=== PATIENT | male | born 1945 | race Caucasian/White ===

== ENCOUNTER → 2017-07-31 | Outpatient (CLI) | payer OTHER ==
[~2017-07-31] MED LIST: ADVAIR 250/501 DISK IH; ADVAIR 500/501 DISK IH; ASPIRIN EC325 M1 PO; ECOTRIN325 MG PO; LIPITOR20 MG PO; LOPRESSOR12.5 MG PO; OPANA ER20 MG PO; OPANA IR10 MG PO; ROXICODONE15 MG PO; SPIRIVA1 INHALATI IH; TOPROL XL25 MG PO; WELLBUTRIN SR150 MG PO; ZANTAC150 MG PO
== END | disposition home or self-care (01) ==
LOC: OPR 07:51 → EDSTATUS 08:00
PROC: 0BB43ZX Excision of Right Upper Lobe Bronchus, Percutaneous Approach, Diagnostic (ICD-10-PCS; principal; 2017-07-31)
DX: C34.11 Malignant neoplasm of upper lobe, right bronchus or lung (principal); J44.9 Chronic obstructive pulmonary disease, unspecified; F17.200 Nicotine dependence, unspecified, uncomplicated; I25.10 Atherosclerotic heart disease of native coronary artery without angina pectoris; Z77.090 Contact with and (suspected) exposure to asbestos
CPT/HCPCS: 71045; 77012; 88305; 88341 TC; 88342 TC; J3010

== ENCOUNTER 2017-08-01 18:22 | Emergency (ER) | payer OTHER, BC ==
[~2017-08-01] VITALS: Ht 175.3 cm; Wt 93.3 kg
[2017-08-01 19:15] LABS: HEMATOCRIT 33.3 % (38.0-50.0); HEMOGLOBIN 11.4 G/DL (12.5-16.6); MCH 31.8 PG (29.0-34.0); MCHC 34.2 G/DL (30.0-36.0); PLATELET COUNT 280 K/uL (156-360); RBC DIS.WIDTH-CV 11.3 % (11.8-14.6); RBC DIS.WIDTH-SD 38.3 % (39-53); RED BLOOD COUNT 3.58 M/uL (4.00-5.50); WHITE BLOOD COUNT 12.3 K/uL (4.1-10.2)
[2017-08-01 19:35] LABS: CHLORIDE 99 mEq/L (99-109); POTASSIUM 4.6 mEq/L (3.7-5.4); SODIUM 135 mEq/L (136-147)
[2017-08-01 19:37] LABS: GLUCOSE 110 mg/dL (70-99); TROP-I INTERPRETATION NEGATIVE; TROPONIN-I < 0.01 ng/mL (0.0-0.30)
[2017-08-01 19:41] LABS: CREATININE 1.3 mg/dL (0.6-1.3); GFR ESTIMATE (CALCULATED) 58 mL/min/ (58.99-99999)
[2017-08-01 19:42] LABS: UREA NITROGEN (BUN) 25 mg/dL (9-23)
[2017-08-02 02:00] VITALS: BP 109/66
== END 2017-08-02 02:00 | disposition home or self-care (01) ==
LOC: EME 18:22
PROVIDERS: Physician Assistant
DX: R55 Syncope and collapse (principal); M48.54XA Collapsed vertebra, not elsewhere classified, thoracic region, initial encounter for fracture; R91.8 Other nonspecific abnormal finding of lung field; J44.9 Chronic obstructive pulmonary disease, unspecified; E78.5 Hyperlipidemia, unspecified; I10 Essential (primary) hypertension; Z95.1 Presence of aortocoronary bypass graft; Z72.0 Tobacco use
CPT/HCPCS: 71046; 71275; 80048; 84484; 85027; 85379; 93005; 99281; 99285

== ENCOUNTER 2017-08-26 11:13 | Inpatient (IN) | payer OTHER, BC ==
[~2017-08-26] VITALS: Ht 172.7 cm; Wt 81.9 kg
[2017-08-26 12:23] LABS: MCH 30.3 PG (29.0-34.0); MCHC 33.2 G/DL (30.0-36.0); MCV 91.2 FL (86-99); RBC DIS.WIDTH-CV 12.2 % (11.8-14.6); RBC DIS.WIDTH-SD 40.7 % (39-53); WHITE BLOOD COUNT 4.6 K/uL (4.1-10.2)
[2017-08-26 12:28] LABS: INTER. NORMALIZED RATIO 1.3
[2017-08-26 12:31] LABS: PTT 26.4 SEC (25-37)
[2017-08-26 12:32] LABS: CHLORIDE 100 mEq/L (99-109); POTASSIUM 4.6 mEq/L (3.7-5.4); SODIUM 133 mEq/L (136-147)
[2017-08-26 12:34] LABS: GLUCOSE 106 mg/dL (70-99)
[2017-08-26 12:38] LABS: CREATININE 0.8 mg/dL (0.6-1.3); GFR ESTIMATE (CALCULATED) > 59 mL/min/ (58.99-99999); UREA NITROGEN (BUN) 32 mg/dL (9-23)
[2017-08-26 12:44] LABS: HEMOGLOBIN 8.3 G/DL (12.5-16.6); RED BLOOD COUNT 2.74 M/uL (4.00-5.50)
[2017-08-26 12:45] LABS: TROP-I INTERPRETATION NEGATIVE; TROPONIN-I < 0.01 ng/mL (0.0-0.30)
[2017-08-26 13:35] LABS: BASOPHIL (%) 0.4 % (0-1); EOSINOPHIL (%) 0.2 % (0-5); IMMATURE GRANULOCYTE (%) 1.9 % (0.0-0.7); LYMPHOCYTE (%) 18.5 % (15-42); LYMPHOCYTE COUNT 0.9 K/uL (1.0-2.8); MONOCYTE (%) 4.5 % (3-12); MONOCYTE COUNT 0.2 K/uL (0-0.8); NEUTROPHIL (%) 74.5 % (45-76); NEUTROPHIL COUNT 3.5 K/uL (1.8-6.4); PLAT.SUFFICIENCY ADEQUATE; PLATELET CLUMPS PRESENT - PLATELET COUNT APPEARS ADQ.; PLATELET COUNT UNABLE TO REPORT K/uL (156-360)
[2017-08-26] MEDS ORDERED: SPIRIVA RESPIMAT4 GM IH (15:14)
[2017-08-26] MEDS ORDERED: DILAUDID2 MG PO (15:15)
[2017-08-26] MEDS ORDERED: ZOFRAN ODT4 MG PO (15:17)
[2017-08-26] MEDS ORDERED: COMPAZINE10 MG PO (15:17)
[2017-08-26] MEDS ORDERED: ACID CONTROL150 MG PO (15:18)
[2017-08-26] MEDS ORDERED: FOLIC ACID0.8 MG PO (15:19)
[2017-08-26 22:00] VITALS: BP 159/76
[2017-08-27] VITALS (11 sets, daily range): BP systolic 129–152; BP diastolic 60–75
[2017-08-27 06:38] LABS: HEMATOCRIT 22.1 % (38.0-50.0); HEMOGLOBIN 7.2 G/DL (12.5-16.6); MCH 29.9 PG (29.0-34.0); MCHC 32.6 G/DL (30.0-36.0); MCV 91.7 FL (86-99); RBC DIS.WIDTH-CV 11.8 % (11.8-14.6); RBC DIS.WIDTH-SD 39.7 % (39-53); RED BLOOD COUNT 2.41 M/uL (4.00-5.50)
[2017-08-27 07:02] LABS: CHLORIDE 100 MEQ/L (99-109); CREATININE 0.7 MG/DL (0.6-1.3); GFR ESTIMATE (CALCULATED) > 59 mL/min/ (58.99-99999); GLUCOSE 150 mg/dL (70-99); POTASSIUM 4.8 MEQ/L (3.7-5.4); SODIUM 135 MEQ/L (136-147); UREA NITROGEN (BUN) 22 mg/dL (9-23)
[2017-08-27 07:06] LABS: BASOPHIL (%) 0.3 % (0-1); EOSINOPHIL (%) 0 % (0-5); IMMATURE GRANULOCYTE (%) 1.7 % (0.0-0.7); LYMPHOCYTE (%) 11.6 % (15-42); LYMPHOCYTE COUNT 0.4 K/uL (1.0-2.8); MONOCYTE (%) 3.7 % (3-12); MONOCYTE COUNT 0.1 K/uL (0-0.8); NEUTROPHIL (%) 82.7 % (45-76); NEUTROPHIL COUNT 2.5 K/uL (1.8-6.4)
[2017-08-27 07:33] LABS: PLATELET COUNT 93 K/uL (156-360)
[2017-08-28 04:12] VITALS: BP 144/70
[2017-08-28 06:05] LABS: CHLORIDE 102 MEQ/L (99-109); CREATININE 0.7 MG/DL (0.6-1.3); GFR ESTIMATE (CALCULATED) > 59 mL/min/ (58.99-99999); GLUCOSE 132 mg/dL (70-99); POTASSIUM 4.9 MEQ/L (3.7-5.4); SODIUM 135 MEQ/L (136-147); UREA NITROGEN (BUN) 20 mg/dL (9-23)
[2017-08-28 06:07] LABS: BASOPHIL (%) 0.2 % (0-1); EOSINOPHIL (%) 0 % (0-5); HEMATOCRIT 27.5 % (38.0-50.0); HEMOGLOBIN 9.2 G/DL (12.5-16.6); IMMATURE GRANULOCYTE (%) 1.2 % (0.0-0.7); LYMPHOCYTE (%) 14.1 % (15-42); LYMPHOCYTE COUNT 0.9 K/uL (1.0-2.8); MCH 29.9 PG (29.0-34.0); MCHC 33.5 G/DL (30.0-36.0); MCV 89.3 FL (86-99); MONOCYTE (%) 3.6 % (3-12); MONOCYTE COUNT 0.2 K/uL (0-0.8); NEUTROPHIL (%) 80.9 % (45-76); NEUTROPHIL COUNT 5.3 K/uL (1.8-6.4); PLATELET COUNT 78 K/uL (156-360); RBC DIS.WIDTH-CV 13.3 % (11.8-14.6); RBC DIS.WIDTH-SD 43.5 % (39-53); RED BLOOD COUNT 3.08 M/uL (4.00-5.50); WHITE BLOOD COUNT 6.6 K/uL (4.1-10.2)
[2017-08-28 07:25] VITALS: BP 144/75
[2017-08-28 17:25] LABS: STOOL OCCULT BLD 1ST SPECIMEN NEGATIVE
[2017-08-28 19:32] VITALS: BP 158/88
[2017-08-28 23:10] VITALS: BP 138/66
[2017-08-29 06:35] LABS: HEMOGLOBIN 9.7 G/DL (12.5-16.6); MCH 30.2 PG (29.0-34.0); MCHC 33.4 G/DL (30.0-36.0); MCV 90.3 FL (86-99); PLATELET COUNT 57 K/uL (156-360); RBC DIS.WIDTH-CV 13.1 % (11.8-14.6); RBC DIS.WIDTH-SD 43.7 % (39-53); RED BLOOD COUNT 3.21 M/uL (4.00-5.50); WHITE BLOOD COUNT 5.9 K/uL (4.1-10.2)
[2017-08-29 07:01] LABS: ABS NEUTROPHIL COUNT 5.1; EOSINOPHIL ABS CT 0; LYMPHOCYTES 12.4 % (15.0-45.0); MONOCYTES 1.7 % (0-9.0); PLAT.SUFFICIENCY DECREASED; SEG.NEUTROPHILS 85.9 % (46.0-76.0)
[2017-08-29 11:11] VITALS: BP 150/72
[2017-08-29 16:00] VITALS: BP 147/68
[2017-08-29 23:42] VITALS: BP 141/63
[2017-08-30 06:26] LABS: HEMATOCRIT 30.8 % (38.0-50.0); MCH 29.4 PG (29.0-34.0); MCHC 32.5 G/DL (30.0-36.0); MCV 90.6 FL (86-99); PLATELET COUNT 53 K/uL (156-360); RBC DIS.WIDTH-CV 12.7 % (11.8-14.6); RBC DIS.WIDTH-SD 42.4 % (39-53)
[2017-08-30 06:56] LABS: CHLORIDE 99 MEQ/L (99-109); CREATININE 0.8 MG/DL (0.6-1.3); GFR ESTIMATE (CALCULATED) > 59 mL/min/ (58.99-99999); GLUCOSE 109 mg/dL (70-99); POTASSIUM 5.3 MEQ/L (3.7-5.4); SODIUM 140 MEQ/L (136-147); UREA NITROGEN (BUN) 24 mg/dL (9-23)
[2017-08-30 07:01] LABS: BASOPHIL (%) 0.2 % (0-1); EOSINOPHIL (%) 0 % (0-5); IMMATURE GRANULOCYTE (%) 1.2 % (0.0-0.7); LYMPHOCYTE (%) 15.6 % (15-42); LYMPHOCYTE COUNT 0.8 K/uL (1.0-2.8); MONOCYTE COUNT 0.4 K/uL (0-0.8); NEUTROPHIL COUNT 3.8 K/uL (1.8-6.4)
[2017-08-30 07:31] VITALS: BP 137/64
[2017-08-31 00:07] VITALS: BP 133/61
[2017-08-31 06:28] LABS: HEMATOCRIT 28.7 % (38.0-50.0); HEMOGLOBIN 9.4 G/DL (12.5-16.6); MCH 29.4 PG (29.0-34.0); MCHC 32.8 G/DL (30.0-36.0); MCV 89.7 FL (86-99); RBC DIS.WIDTH-CV 12.5 % (11.8-14.6); RBC DIS.WIDTH-SD 40.5 % (39-53); WHITE BLOOD COUNT 4.6 K/uL (4.1-10.2)
[2017-08-31 07:04] LABS: BASOPHIL (%) 0 % (0-1); EOSINOPHIL (%) 0.4 % (0-5); IMM.PLATELET FRACTION 2.2 (1-7); IMMATURE GRANULOCYTE (%) 0.9 % (0.0-0.7); LYMPHOCYTE COUNT 1.3 K/uL (1.0-2.8); MONOCYTE (%) 7.7 % (3-12); MONOCYTE COUNT 0.4 K/uL (0-0.8); NEUTROPHIL COUNT 2.9 K/uL (1.8-6.4); PLAT.SUFFICIENCY DECREASED; PLATELET CLUMPS PRESENT - PLATELET COUNT APPEARS ADQ.
[2017-08-31 07:05] LABS: PLATELET COUNT UNABLE TO REPORT K/uL (156-360)
[2017-08-31 07:30] VITALS: BP 153/78
[2017-08-31 18:00] VITALS: BP 123/67
[2017-08-31 23:28] VITALS: BP 145/78
[2017-09-01 07:05] VITALS: BP 125/69
[2017-09-01 15:13] VITALS: BP 116/70
[2017-09-02 00:03] VITALS: BP 122/62
[2017-09-02 07:03] LABS: BASOPHIL (%) 0.2 % (0-1); EOSINOPHIL (%) 0.5 % (0-5); HEMATOCRIT 30.2 % (38.0-50.0); HEMOGLOBIN 9.8 G/DL (12.5-16.6); IMMATURE GRANULOCYTE (%) 3.3 % (0.0-0.7); LYMPHOCYTE (%) 29.2 % (15-42); LYMPHOCYTE COUNT 1.2 K/uL (1.0-2.8); MCH 29.4 PG (29.0-34.0); MCHC 32.5 G/DL (30.0-36.0); MCV 90.7 FL (86-99); MONOCYTE (%) 12.4 % (3-12); MONOCYTE COUNT 0.5 K/uL (0-0.8); NEUTROPHIL (%) 54.4 % (45-76); NEUTROPHIL COUNT 2.3 K/uL (1.8-6.4); RBC DIS.WIDTH-CV 12.6 % (11.8-14.6); RBC DIS.WIDTH-SD 41.8 % (39-53); RED BLOOD COUNT 3.33 M/uL (4.00-5.50); WHITE BLOOD COUNT 4.2 K/uL (4.1-10.2)
[2017-09-02 07:18] LABS: PLATELET COUNT 61 K/uL (156-360)
[2017-09-02 07:30] VITALS: BP 124/56
[2017-09-02 10:08] VITALS: BP 109/61
[2017-09-02 12:01] LABS: ALBUMIN 3.1 G/DL (3.2-4.8); ALKALINE PHOSPHATASE 115 IU/L (3-129); ALT (GPT) 75 IU/L (3-49); AST (GOT) 65 IU/L (2-34); DIRECT BILIRUBIN 0.2 mg/dL (0.0-0.3); TOTAL BILIRUBIN 0.6 MG/DL (0.0-1.0)
[2017-09-02 15:30] VITALS: BP 117/62
[2017-09-02 22:56] VITALS: BP 101/62
[2017-09-03 06:16] LABS: HEMATOCRIT 28.6 % (38.0-50.0); HEMOGLOBIN 9.4 G/DL (12.5-16.6); MCHC 32.9 G/DL (30.0-36.0); MCV 91.4 FL (86-99); RBC DIS.WIDTH-CV 12.8 % (11.8-14.6); RBC DIS.WIDTH-SD 41.7 % (39-53); RED BLOOD COUNT 3.13 M/uL (4.00-5.50)
[2017-09-03 06:19] LABS: PLATELET COUNT 85 K/uL (156-360)
[2017-09-03 06:59] LABS: ABS NEUTROPHIL COUNT 2.3; ANISOCYTOSIS 1+; ATYPICAL LYMPHOCYTE 2.6 %; BAND NEUTROPHILS 0.9 % (0-8.0); EOSINOPHIL ABS CT 0; HYPOCHROMASIA 1+; LYMPHOCYTES 25.2 % (15.0-45.0); METAMYELOCYTES 1.7 %; MICROCYTOSIS 1+; PLAT.SUFFICIENCY DECREASED
[2017-09-03 07:16] VITALS: BP 117/67
[2017-09-03 07:38] LABS: MONOCYTES 13.1 % (0-9.0); SEG.NEUTROPHILS 56.5 % (46.0-76.0)
[2017-09-03 09:05] LABS: CHLORIDE 98 MEQ/L (99-109); CREATININE 0.8 MG/DL (0.6-1.3); GFR ESTIMATE (CALCULATED) > 59 mL/min/ (58.99-99999); GLUCOSE 88 mg/dL (70-99); POTASSIUM 4.7 MEQ/L (3.7-5.4); SODIUM 137 MEQ/L (136-147); UREA NITROGEN (BUN) 25 mg/dL (9-23)
[2017-09-03] MEDS ORDERED: PREDNISONE20 MG PO (11:49)
[2017-09-03] MEDS ORDERED: AUGMENTIN875 MG PO (11:49)
== END 2017-09-03 14:14 | disposition home health service (06) | DRG 189 ==
LOC: EME 11:13 → 5EAST 14:29 → EDOF 14:29 → ENRESERV 14:31 → 5EAST 21:04 → ENPENDDIS 09-03 → 5EAST 09-03 14:14
PROVIDERS: Emergency Medicine; Hospitalist; Internal Medicine; Student in an Organized Health Care Education/Training Program
PROC: 30233N1 Transfusion of Nonautologous Red Blood Cells into Peripheral Vein, Percutaneous Approach (ICD-10-PCS; principal; 2017-08-27)
DX: J96.01 Acute respiratory failure with hypoxia (principal); J44.0 Chronic obstructive pulmonary disease with (acute) lower respiratory infection; J18.9 Pneumonia, unspecified organism; C34.90 Malignant neoplasm of unspecified part of unspecified bronchus or lung; J44.1 Chronic obstructive pulmonary disease with (acute) exacerbation; D64.81 Anemia due to antineoplastic chemotherapy; T45.1X5A Adverse effect of antineoplastic and immunosuppressive drugs, initial encounter; D63.8 Anemia in other chronic diseases classified elsewhere; E86.0 Dehydration; E87.1 Hypo-osmolality and hyponatremia; I25.10 Atherosclerotic heart disease of native coronary artery without angina pectoris; E83.51 Hypocalcemia; Z77.090 Contact with and (suspected) exposure to asbestos; C79.9 Secondary malignant neoplasm of unspecified site; Z95.1 Presence of aortocoronary bypass graft; I10 Essential (primary) hypertension; D69.6 Thrombocytopenia, unspecified; Z87.891 Personal history of nicotine dependence; E78.5 Hyperlipidemia, unspecified; Z66 Do not resuscitate
CPT/HCPCS: 71045; 71046; 71275; 80048; 80076; 82272; 83605; 84484; 85025; 85025 91; 85610; 85730; 86850; 86900; 86901; 86920; 87040; 87070; 87205; 87502; 93005; 94640; 94640 76; 94799; 97530 GO; 99202; 99281; 99285; J0692; J1650; J1956; J2543; J2920; J2930; J7030; J7050; J7512; P9016